=== PATIENT | female | born 1990 | race African-American/Black ===

== ENCOUNTER 2018-04-01 10:28 | Emergency (ER) | payer OTHER ==
[~2018-04-01] VITALS: Ht 167.6 cm; Wt 81.0 kg
[2018-04-01 13:42] VITALS: BP 128/78
[2018-04-01 13:55] LABS: BASOPHILS % 0.8 % (0.0-2.0); EOSINOPHILS % 5.8 % (0.0-5.0); HEMATOCRIT. 37.6 % (36.0-48.0); HEMOGLOBIN. 12.2 g/dL (12.0-16.0); LYMPHOCYTES % 33.4 % (20.0-50.0); MEAN CORPUSCULAR HEMOGLOBIN 28.5 pg (28.0-32.0); MEAN PLATELET VOLUME 8.9 fl (7.4-10.4); MONOCYTES % 9.8 % (2.0-8.0); NEUTROPHILS % 50.2 % (40.0-76.0); PLATELET 356 x1000/uL (130-400); RED BLOOD CELL COUNT 4.27 mill/uL (4.2-5.4); RED CELL DISTRIBUTION WIDTH 13.9 % (11.6-14.6)
[2018-04-01 14:28] LABS: CHLORIDE 106 mEq/L (98-107)
[2018-04-01 14:40] LABS: B-HCG QUANTITATIVE 7 mIU/mL (<3)
== END 2018-04-01 14:57 | disposition home or self-care (01) ==
LOC: ER 10:28
DX: N93.9 Abnormal uterine and vaginal bleeding, unspecified (principal); N83.201 Unspecified ovarian cyst, right side; J45.909 Unspecified asthma, uncomplicated
CPT/HCPCS: 36415; 76830; 76856; 80053; 81025; 84702; 85025; 86850; 86900; 99285

== ENCOUNTER 2018-04-27 22:15 | Emergency (ER) | payer MEDICAID, OTHER ==
[~2018-04-27] VITALS: Ht 167.6 cm; Wt 75.0 kg
[2018-04-27] MEDS ORDERED: METHYLPREDNISOLONE SOD SUCC 125 MG/2 ML VIAL IV STA (22:38)
[2018-04-27] MEDS ORDERED: IPRATROPIUM BROMIDE (0.02%) 0.5MG/2.5ML NEB HHN STA (22:38)
[2018-04-27] MEDS ORDERED: ALBUTEROL (0.083%) 2.5MG/3ML NEB HHN STA (22:38)
[2018-04-27] MEDS ORDERED: ALBUTEROL (0.5%) 2.5MG/0.5ML NEB HHN ONE (22:57)
[2018-04-27] MEDS ORDERED: IPRATROPIUM/ALBUTEROL 0.5-3(2.5)MG/3ML NEB ONE (22:58)
[2018-04-28 00:11] LABS: BASOPHILS % 0.4 % (0.0-2.0); EOSINOPHILS % 2.6 % (0.0-5.0); HEMATOCRIT. 36.2 % (36.0-48.0); HEMOGLOBIN. 11.5 g/dL (12.0-16.0); LYMPHOCYTES % 45.5 % (20.0-50.0); MEAN CORPUSCULAR HEMOGLOBIN 27.7 pg (28.0-32.0); MEAN CORPUSCULAR VOLUME 87.2 fL (81.0-99.0); MEAN PLATELET VOLUME 9.3 fl (7.4-10.4); MONOCYTES % 9.5 % (2.0-8.0); PLATELET 275 x1000/uL (130-400); RED BLOOD CELL COUNT 4.15 mill/uL (4.2-5.4); RED CELL DISTRIBUTION WIDTH 13.5 % (11.6-14.6)
[2018-04-28 00:19] LABS: HCG SCREEN NEGATIVE
[2018-04-28 00:23] LABS: CHLORIDE 108 mEq/L (98-107)
[2018-04-28 00:28] VITALS: BP 128/71
== END 2018-04-28 00:37 | disposition home or self-care (01) ==
LOC: ER 22:15
DX: J45.901 Unspecified asthma with (acute) exacerbation (principal)
CPT/HCPCS: 36415; 80053; 81025; 84703; 85025; 94644; 96374; 99285; J2930; J7611; J7620

== ENCOUNTER 2022-03-25 13:25 | Emergency (ER) | payer MEDICAID ==
[~2022-03-25] VITALS: Ht 165.1 cm; Wt 63.0 kg
[2022-03-25] MEDS ORDERED: MORPHINE SULFATE 4 MG/ML CPJ (NOT FOR IM USE) IV ONE ×2 (14:00→15:30)
[2022-03-25] MEDS ORDERED: ONDANSETRON HCL 4MG/2ML INJ IV ONE (14:00)
[2022-03-25 14:19] LABS: HEMATOCRIT. 32.6 % (36.0-48.0); HEMOGLOBIN. 10.7 g/dL (12.0-16.0); MEAN CORPUSCULAR HEMOGLOBIN 28.8 pg (28.0-32.0); PLATELET 287 x1000/uL (130-400); RED BLOOD CELL COUNT 3.71 mill/uL (4.2-5.4); RED CELL DISTRIBUTION WIDTH 15.3 % (11.6-14.6)
[2022-03-25 14:27] LABS: HCG SCREEN NEGATIVE
[2022-03-25 14:28] LABS: CHLORIDE 107 mEq/L (98-107)
[2022-03-25 14:40] LABS: PLATELET ESTIMATE NORMAL
[2022-03-25] MEDS ORDERED: IOHEXOL-300 100 ML BOTTLE ONE (15:07)
[2022-03-25 16:34] LABS: CLARITY URINE CLOUDY (CLEAR); COLOR URINE YELLOW (YELLOW); KETONES URINE 2+ (NEGATIVE); LEUKOCYTE ESTERASE URINE 3+ (NEGATIVE); NITRITE URINE POSITIVE (NEGATIVE); OCCULT BLOOD URINE 1+ (NEGATIVE); PROTEIN URINE 2+ (NEGATIVE); SPECIFIC GRAVITY URINE 1.028 (1.005-1.030); UROBILINOGEN URINE 0.2 E.U./dL (0.2-1.0)
[2022-03-25] MEDS ORDERED: CIPR-263 MT (16:54)
[2022-03-25] MEDS ORDERED: TOPUD PO (16:54)
[2022-03-25] MEDS ORDERED: LIDO700A30 TP (16:54)
[2022-03-25] MEDS ORDERED: ACETAMINOPHEN 325MG TABLET PO ONE (17:00)
[2022-03-25] MEDS ORDERED: MORPHINE SULFATE 2 MG/ML CPJ (NOT FOR IM USE) IV ONE (17:00)
[2022-03-25 18:00] VITALS: BP 134/96
== END 2022-03-25 18:02 | disposition home or self-care (01) ==
LOC: ER 13:25
DX: N12 Tubulo-interstitial nephritis, not specified as acute or chronic (principal); J45.909 Unspecified asthma, uncomplicated; Z85.9 Personal history of malignant neoplasm, unspecified
CPT/HCPCS: 36415; 71045; 74177; 76830; 76856; 80053; 81003; 83605; 83690; 84703; 85025; 96374; 96375; 96376; 99285; J2270; J2405; Q9967

== ENCOUNTER 2024-01-29 21:42 | Emergency (ER) | payer SELFPAY ==
[~2024-01-29 21:42] MED LIST: CIPR-263 MT; LIDO700A30 TP; TOPUD PO
[2024-01-29] MEDS: IPRATROPIUM BROMIDE (0.02%) 0.5MG/2.5ML NEB HHN STA (21:59)
[2024-01-29] MEDS: ALBUTEROL (0.083%) 2.5MG/3ML NEB HHN STA (21:59)
[2024-01-29 22:00] VITALS: TEMP 97.9
[2024-01-29] MEDS: EPINEPHRINE 1:1000 1 MG/ML AMP IM ONE (22:03)
[2024-01-29] MEDS: DIPHENHYDRAMINE 50MG/ML VIAL IV ONE (22:08)
[2024-01-29] MEDS: METHYLPREDNISOLONE SOD SUCC 125MG/2ML (ACT-O-VIAL) IV ONE (22:09)
[2024-01-29] MEDS: SODIUM CHLORIDE 0.9% 1,000 ML IV SCH (22:09)
[2024-01-29] MEDS: FAMOTIDINE 20MG/2ML VIAL IV ONE (22:19)
[2024-01-29 22:50] LABS: BASOPHILS % 0.5 % (0.0-2.0); EOSINOPHILS % 1.7 % (0.0-5.0); HEMATOCRIT. 38.8 % (36.0-48.0); HEMOGLOBIN. 12.6 g/dL (12.0-16.0); LYMPHOCYTES % 38.2 % (20.0-50.0); MEAN CORPUSCULAR HEMOGLOBIN 28.8 pg (28.0-32.0); MEAN CORPUSCULAR HGB CONC 32.4 g/dL (31.0-37.0); MEAN PLATELET VOLUME 9.8 fl (7.4-10.4); MONOCYTES % 12.1 % (2.0-8.0); NEUTROPHILS % 47.5 % (40.0-76.0); PLATELET 218 x1000/uL (130-400); RED BLOOD CELL COUNT 4.36 mill/uL (4.2-5.4); RED CELL DISTRIBUTION WIDTH 14.5 % (11.6-14.6); WHITE BLOOD COUNT 6.6 x1000/uL (4.5-11.0)
[2024-01-29 22:56] LABS: CHLORIDE 108 mEq/L (98-107); POTASSIUM 3.5 mEq/L (3.5-5.1); SODIUM 143 mEq/L (136-145)
[2024-01-29 22:57] LABS: CARBON DIOXIDE 25 mEq/L (21-32)
[2024-01-29 22:58] LABS: CALCIUM 9.6 mg/dL (8.7-10.4)
[2024-01-29 23:02] LABS: CREATININE 1.2 mg/dL (0.6-1.0); GLUCOSE 124 mg/dL (70-105); UREA NITROGEN BLOOD 13 mg/dL (9-23)
[2024-01-29 23:03] LABS: HCG SCREEN NEGATIVE
[2024-01-29 23:04] LABS: ALANINE AMINOTRANSFERASE 55 IU/L (10-49); ALBUMIN 4.6 g/dL (3.2-4.8); ASPARTATE AMINOTRANSFERASE 91 IU/L (<34)
[2024-01-29 23:05] LABS: BILIRUBIN TOTAL 0.2 mg/dL (0.1-1.0); PROTEIN TOTAL 7.4 g/dL (6.0-8.3)
[2024-01-30 01:20] VITALS: BP 117/77; PULSE 105; RESP 18
[2024-01-30] MEDS ORDERED: P20 MT (01:29)
[2024-01-30] MEDS ORDERED: DIPH25CA83 PO (01:29)
[2024-01-30] MEDS ORDERED: ALBU6.7H15 INH (01:29)
[2024-01-30] MEDS ORDERED: EPIN0.3P3 IM (01:29)
== END 2024-01-30 01:50 | disposition home or self-care (01) ==
LOC: ER 21:42
DX: T78.49XA Other allergy, initial encounter (principal); T78.2XXA Anaphylactic shock, unspecified, initial encounter; J45.901 Unspecified asthma with (acute) exacerbation; Z85.9 Personal history of malignant neoplasm, unspecified; X58.XXXA Exposure to other specified factors, initial encounter; Y93.89 Activity, other specified; Y92.89 Other specified places as the place of occurrence of the external cause; Y99.8 Other external cause status
CPT/HCPCS: 80053; 84703; 85025; 84484; 36415; 71045; 93005; 94644; 96361; 96372; 96374; 96375; 99285; J1200; J3490 ×2; J2919; Z7610 ×3; J7030

== ENCOUNTER 2024-11-04 21:07 | Emergency (ER) | payer MEDICAID ==
[~2024-11-04] VITALS: Ht 167.6 cm; Wt 84.0 kg
[~2024-11-04 21:07] MED LIST changes: +ACET-2708 PO; +ALBU6.7H15 INH; -CIPR-263 MT; +CITA10TA88 PO; +EPIN0.3P3 IM; +GABA-1180 PO; -LIDO700A30 TP; +NAPR-681 PO; -TOPUD PO; +TRAZ-251 PO
[2024-11-04 21:09] VITALS: O2SAT 97
[2024-11-04] MEDS ORDERED: CEFEPIME 2GM IN DEXT 5% 100ML IV ONE (21:45)
[2024-11-04] MEDS: MORPHINE SULFATE 4 MG/ML INJ (FOR IV/IM USE) IV ONE (22:59)
[2024-11-04] MEDS: ONDANSETRON HCL 4MG/2ML INJ IV ONE (23:00)
[2024-11-04] MEDS: CEFEPIME 2GM/50ML DUPLEX 50 ML IV NR (23:03)
[2024-11-04] MEDS: SODIUM CHLORIDE 0.9% (SEPSIS BOLUS) IV ONE (23:08)
[2024-11-04 23:35] LABS: HEMATOCRIT. 35.7 % (36.0-48.0); HEMOGLOBIN. 11.3 g/dL (12.0-16.0); MEAN CORPUSCULAR HEMOGLOBIN 26.5 pg (28.0-32.0); MEAN CORPUSCULAR HGB CONC 31.6 g/dL (31.0-37.0); MEAN CORPUSCULAR VOLUME 83.8 fL (81.0-99.0); MEAN PLATELET VOLUME 9.2 fl (7.4-10.4); PLATELET 307 x1000/uL (130-400); RED BLOOD CELL COUNT 4.26 mill/uL (4.2-5.4); RED CELL DISTRIBUTION WIDTH 18.7 % (11.6-14.6); WHITE BLOOD COUNT 13.8 x1000/uL (4.5-11.0)
[2024-11-04 23:45] LABS: CHLORIDE 101 mEq/L (98-107); POTASSIUM 3.9 mEq/L (3.5-5.1); SODIUM 136 mEq/L (136-145)
[2024-11-04 23:46] LABS: CALCIUM 9.9 mg/dL (8.7-10.4); CARBON DIOXIDE 27 mEq/L (21-32)
[2024-11-04] MEDS: VANCOMYCIN 1G PREMIX 200 ML IV ONE (23:48)
[2024-11-04 23:51] LABS: CREATININE 1.3 mg/dL (0.6-1.0); GLUCOSE 106 mg/dL (70-105); UREA NITROGEN BLOOD 17 mg/dL (9-23)
[2024-11-04 23:53] LABS: ALANINE AMINOTRANSFERASE 11 IU/L (10-49); ALBUMIN 4.3 g/dL (3.2-4.8); ASPARTATE AMINOTRANSFERASE 16 IU/L (<34); BILIRUBIN DIRECT 0.1 mg/dL (<=3.0); BILIRUBIN TOTAL 0.5 mg/dL (0.1-1.0); PROTEIN TOTAL 8.1 g/dL (6.0-8.3)
[2024-11-04 23:55] LABS: DIFFERENTIAL COMMENT 1; INR 1.1; PROTHROMBIN TIME 11.4 sec (9.6-11.0)
[2024-11-05 00:02] LABS: CLARITY URINE CLOUDY (CLEAR); COLOR URINE YELLOW (YELLOW); GLUCOSE URINE NEGATIVE (NEGATIVE); KETONES URINE NEGATIVE (NEGATIVE); LEUKOCYTE ESTERASE URINE 3+ (NEGATIVE); NITRITE URINE NEGATIVE (NEGATIVE); OCCULT BLOOD URINE 1+ (NEGATIVE); PH URINE >=9.0 (4.5-8.0); PROTEIN URINE 1+ (NEGATIVE); SPECIFIC GRAVITY URINE 1.015 (1.005-1.030); UROBILINOGEN URINE 0.2 E.U./dL (0.2-1.0)
[2024-11-05] MEDS: MORPHINE SULFATE 2 MG/ML INJ (NOT FOR IM USE) IV ONE (00:10)
[2024-11-05 00:33] LABS: BACTERIA URINE 1+; SQUAMOUS EPITHELIAL CELL URINE FEW /lpf (RARE/1+); TRIPLE PHOSPHATE CRYSTAL URINE 2+ /lpf; WBC URINE 15-25 /hpf (0-2)
[2024-11-05] MEDS: ACETAMINOPHEN 325MG TABLET PO ONE (01:11)
[2024-11-05] MEDS: MORPHINE SULFATE 4 MG/ML INJ (FOR IV/IM USE) IV ONE (02:37)
[2024-11-05] MEDS: KETOROLAC 15MG/ML VIAL IV NR (02:59)
[2024-11-05 04:50] VITALS: BP 112/60; PULSE 112; RESP 18; TEMP 37.4; O2SAT 95
[2024-11-05 05:05] LABS: ANISOCYTOSIS 2+; PLATELET ESTIMATE NORMAL
[2024-11-05 05:06] LABS: HYPOCHROMASIA 1+
== END 2024-11-05 05:16 | disposition short-term general hospital (02) ==
LOC: ER 21:07
DX: R10.9 Unspecified abdominal pain (principal); C53.9 Malignant neoplasm of cervix uteri, unspecified; N82.0 Vesicovaginal fistula; J45.909 Unspecified asthma, uncomplicated; Z79.899 Other long term (current) drug therapy; Z87.440 Personal history of urinary (tract) infections; Z90.49 Acquired absence of other specified parts of digestive tract; Z92.3 Personal history of irradiation
CPT/HCPCS: 99291; 74177; 96365; 96375 ×2; 80076; 80048; 81003; 81025; 83605; 83690; 85025; 85610; 86850; 86900; 86901; 87040; 87086; 36415; 84145; 93005; 96376; J0692; J2405; J3370; J2270 ×3; J7030; J1885

== ENCOUNTER 2025-03-26 12:09 | Emergency (ER) | payer MEDICAID ==
[~2025-03-26] VITALS: Ht 167.6 cm; Wt 84.0 kg
[2025-03-26 12:14] VITALS: O2SAT 98
[2025-03-26] MEDS: ACETAMINOPHEN 325MG TABLET PO ONE (12:55)
[2025-03-26] MEDS: MAGNESIUM/ALUMINUM HYDROXIDE/SIMETHICONE 30ML UDC PO ONE (12:56)
[2025-03-26 13:04] LABS: BASOPHILS % 0.3 % (0.0-2.0); EOSINOPHILS % 3.9 % (0.0-5.0); HEMATOCRIT. 37.6 % (36.0-48.0); HEMOGLOBIN. 11.8 g/dL (12.0-16.0); LYMPHOCYTES % 15.7 % (20.0-50.0); MEAN PLATELET VOLUME 8.1 fl (7.4-10.4); MONOCYTES % 6.3 % (2.0-8.0); NEUTROPHILS % 73.8 % (40.0-76.0); PLATELET 278 x1000/uL (130-400); RED BLOOD CELL COUNT 4.43 mill/uL (4.2-5.4); RED CELL DISTRIBUTION WIDTH 17.7 % (11.6-14.6)
[2025-03-26 13:18] LABS: CREATININE 1.1 mg/dL (0.6-1.0); UREA NITROGEN BLOOD 13 mg/dL (9-23)
[2025-03-26 13:20] LABS: ASPARTATE AMINOTRANSFERASE 26 IU/L (<34); BILIRUBIN DIRECT < 0.1 mg/dL (<=3.0); BILIRUBIN TOTAL 0.3 mg/dL (0.1-1.0); HCG SCREEN NEGATIVE; PROTEIN TOTAL 7.3 g/dL (6.0-8.3)
[2025-03-26] MEDS: SODIUM CHLORIDE 0.9% 1,000 ML IV ONE (13:42)
[2025-03-26] MEDS: ONDANSETRON HCL 4MG/2ML INJ IV ONE (13:42)
[2025-03-26] MEDS: MORPHINE SULFATE 4 MG/ML INJ (FOR IV/IM USE) IV ONE (14:52)
[2025-03-26 15:58] LABS: CLARITY URINE CLEAR (CLEAR); COLOR URINE YELLOW (YELLOW); GLUCOSE URINE NEGATIVE (NEGATIVE); KETONES URINE NEGATIVE (NEGATIVE); LEUKOCYTE ESTERASE URINE TRACE (NEGATIVE); NITRITE URINE NEGATIVE (NEGATIVE); OCCULT BLOOD URINE NEGATIVE (NEGATIVE); PH URINE 6.5 (4.5-8.0); PROTEIN URINE NEGATIVE (NEGATIVE); SPECIFIC GRAVITY URINE 1.008 (1.005-1.030); UROBILINOGEN URINE 0.2 E.U./dL (0.2-1.0)
[2025-03-26 16:04] LABS: BACTERIA URINE TRACE; RBC URINE NONE SEEN /hpf (0-2); SQUAMOUS EPITHELIAL CELL URINE RARE /lpf (RARE/1+)
[2025-03-26] MEDS ORDERED: ONDA-239 PO (16:36)
[2025-03-26] MEDS ORDERED: CEPH500C2 MT (16:36)
[2025-03-26 16:48] VITALS: BP 142/73; PULSE 82; RESP 20; TEMP 36.8; O2SAT 100
== END 2025-03-26 17:12 | disposition home or self-care (01) ==
LOC: ER 12:18 → CANBEDREQ 17:28
DX: N39.0 Urinary tract infection, site not specified (principal); F17.200 Nicotine dependence, unspecified, uncomplicated; J45.909 Unspecified asthma, uncomplicated; Z79.899 Other long term (current) drug therapy
CPT/HCPCS: 80076; 80048; 81003; 84703; 83690; 83735; 85025; 36415; 93005; 96361; 96374; 96375; 99284; J2405; J2270; J7030; Z7610 ×3